=== PATIENT | female | born 1980 | race Caucasian/White ===

== ENCOUNTER 2019-07-30 23:59 | Emergency (ER) | payer MEDICAID ==
[~2019-07-30] VITALS: Ht 172.7 cm; Wt 99.1 kg
[~2019-07-30 23:59] MED LIST: ACETAZOLAMIDE125 MG PO; ADVAIR 250-501 EACH; AUGMENTIN 875-1 EACH PO; BACTRIM DS TAB1 EACH PO; BENADRYL25 MG; BUTALB-APAP-CA1 EACH PO; CIPRO250 M1 PO; DOXYCYCLINE 10100 MG PO; IMITREX100 MG PO; METROGEL-VAGINA70 GM VG; ONDANSETRON HCL4 M2; ONDANSETRON HCL4 M2 PO; PHENERGAN 25 MG25 M1 PO; PHENTERMINE H37.5 M1 PO; PROAIR HFA8.5 GM; PROMETHAZINE12.5 M4 RE; RANITIDINE HCL150 M1 PO; RIFAMPIN 300 M300 MG PO; SINGULAIR 10 MG10 M1; TOPAMAX 100 MG100 MG PO; ULTRAM 50MG TAB50 MG PO; ZANTAC 150MG T150 M1 PO
[2019-07-31 01:56] VITALS: BP 126/68
== END 2019-07-31 01:56 | disposition home or self-care (01) ==
LOC: M.ERS 23:59
DX: G43.909 Migraine, unspecified, not intractable, without status migrainosus (principal); N80.9 Endometriosis, unspecified; M79.7 Fibromyalgia; E11.9 Type 2 diabetes mellitus without complications; J45.909 Unspecified asthma, uncomplicated; F17.210 Nicotine dependence, cigarettes, uncomplicated; Z88.6 Allergy status to analgesic agent; Z91.040 Latex allergy status; Z88.5 Allergy status to narcotic agent

== ENCOUNTER 2019-08-28 13:38 | Emergency (ER) | payer MEDICAID ==
[~2019-08-28] VITALS: Ht 170.2 cm; Wt 90.7 kg
[2019-08-28] MEDS ORDERED: TIMOLOL MALEATE5 M2 OPHTHALMIC (13:55)
[2019-08-28] MEDS ORDERED: TRAMADOL 50 MG50 MG PO (16:49)
[2019-08-28 17:12] VITALS: BP 124/85
== END 2019-08-28 17:14 | disposition home or self-care (01) ==
LOC: M.ERS 13:38
DX: S93.491A Sprain of other ligament of right ankle, initial encounter (principal); N80.9 Endometriosis, unspecified; J45.909 Unspecified asthma, uncomplicated; E11.9 Type 2 diabetes mellitus without complications; M79.7 Fibromyalgia; G43.909 Migraine, unspecified, not intractable, without status migrainosus; F17.210 Nicotine dependence, cigarettes, uncomplicated; Z88.6 Allergy status to analgesic agent; Z88.5 Allergy status to narcotic agent; Z91.040 Latex allergy status; W18.39XA Other fall on same level, initial encounter; Y93.89 Activity, other specified; Y92.89 Other specified places as the place of occurrence of the external cause; Y99.8 Other external cause status

== ENCOUNTER 2019-11-19 07:57 | Emergency (ER) | payer MEDICAID ==
[~2019-11-19] VITALS: Ht 170.2 cm; Wt 90.7 kg
[~2019-11-19 07:57] MED LIST changes: +TIMOLOL MALEATE5 M2 OPHTHALMIC; +TRAMADOL 50 MG50 MG PO
[2019-11-19] MEDS ORDERED: PROAIR HFA8.5 GM INH (08:18)
[2019-11-19 08:54] LABS: INFLUENZA A ANTIGEN Positive (Negative); INFLUENZA B ANTIGEN Negative (Negative)
[2019-11-19] MEDS ORDERED: TAMIFLU75 MG PO (10:16)
[2019-11-19] MEDS ORDERED: AZITHROMYCIN 2250 MG PO (10:16)
[2019-11-19 10:31] VITALS: BP 151/86
== END 2019-11-19 10:32 | disposition home or self-care (01) ==
LOC: M.ERS 07:57
PROVIDERS: Emergency Medicine
DX: J11.1 Influenza due to unidentified influenza virus with other respiratory manifestations (principal); J40 Bronchitis, not specified as acute or chronic; R11.2 Nausea with vomiting, unspecified; R07.9 Chest pain, unspecified; F17.210 Nicotine dependence, cigarettes, uncomplicated; G43.909 Migraine, unspecified, not intractable, without status migrainosus; E11.9 Type 2 diabetes mellitus without complications; M79.7 Fibromyalgia; Z88.6 Allergy status to analgesic agent; Z88.5 Allergy status to narcotic agent; Z91.040 Latex allergy status

== ENCOUNTER 2021-06-19 10:40 | Emergency (ER) | payer MEDICAID ==
[~2021-06-19] VITALS: Ht 172.7 cm; Wt 90.7 kg
[~2021-06-19 10:40] MED LIST changes: +AZITHROMYCIN 2250 MG PO; +PROAIR HFA8.5 GM INH; +TAMIFLU75 MG PO
[2021-06-19 12:45] LABS: ABSOLUTE BASOPHILS 0.1 thou/uL (0.0-0.2); ABSOLUTE EOSINOPHILS 0.1 thou/uL (0.0-0.7); ABSOLUTE LYMPHOCYTES 3.1 thou/uL (0.8-5.3); ABSOLUTE MONOCYTES 0.5 thou/uL (0.0-1.2); ABSOLUTE NEUTROPHILS 5.9 thou/uL (1.6-8.1); BASOPHILS 0.7 %; EOSINOPHILS 0.6 %; HEMOGLOBIN 15.1 gm/dL (12.0-15.0); LYMPHOCYTES 32.7 %; MCH 32.6 pg (26.0-34.0); MCHC 35.1 g/dL (28.0-37.0); MCV 93.1 fL (80.0-100.0); MPV 8.3 fl. (7.2-11.1); NUCLEATED RBCS 0 /100WBC; PLATELET COUNT* 252 thou/uL (150-400); RBC 4.62 mil/uL (4.20-5.00); RDW-CV 13.5 % (10.5-14.5); WBC 9.6 thou/uL (4.0-11.0)
[2021-06-19 12:49] LABS: CALCIUM 8.9 mg/dL (8.5-10.1); CREATININE 0.9 mg/dL (0.6-1.3); POTASSIUM 3.9 mmol/L (3.5-5.1)
[2021-06-19 12:54] LABS: ALBUMIN 4.2 g/dL (3.4-5.0); TOTAL BILIRUBIN 0.6 mg/dL (<0.1-1.0); TOTAL PROTEIN 7.5 g/dL (6.4-8.2)
[2021-06-19] MEDS ORDERED: BUTALB-APAP-CA1 EACH PO (15:01)
[2021-06-19] MEDS ORDERED: CEPHALEXIN500 MG PO (15:01)
[2021-06-19] MEDS ORDERED: BACTRIM DS TAB1 EACH PO (15:01)
[2021-06-19] MEDS ORDERED: ULTRAM50 MG PO (15:29)
[2021-06-19 16:23] VITALS: BP 154/72
== END 2021-06-19 16:23 | disposition home or self-care (01) ==
LOC: M.ERS 10:40
PROVIDERS: Nurse Practitioner Family
DX: L03.211 Cellulitis of face (principal); G43.909 Migraine, unspecified, not intractable, without status migrainosus; J34.1 Cyst and mucocele of nose and nasal sinus; J45.909 Unspecified asthma, uncomplicated; E11.9 Type 2 diabetes mellitus without complications; M79.7 Fibromyalgia; F17.210 Nicotine dependence, cigarettes, uncomplicated; Z79.51 Long term (current) use of inhaled steroids; Z98.890 Other specified postprocedural states; Z88.5 Allergy status to narcotic agent; Z88.8 Allergy status to other drugs, medicaments and biological substances; Z88.6 Allergy status to analgesic agent; Z91.040 Latex allergy status

== ENCOUNTER 2021-07-06 08:08 | Emergency (ER) | payer MEDICAID ==
[~2021-07-06] VITALS: Ht 172.7 cm; Wt 90.7 kg
[~2021-07-06 08:08] MED LIST changes: +CEPHALEXIN500 MG PO; +ULTRAM50 MG PO
[2021-07-06] MEDS ORDERED: OTHER (08:23)
[2021-07-06 09:28] LABS: ABSOLUTE BASOPHILS 0.1 thou/uL (0.0-0.2); ABSOLUTE EOSINOPHILS 0.1 thou/uL (0.0-0.7); ABSOLUTE LYMPHOCYTES 2.9 thou/uL (0.8-5.3); ABSOLUTE MONOCYTES 0.8 thou/uL (0.0-1.2); ABSOLUTE NEUTROPHILS 9.1 thou/uL (1.6-8.1); EOSINOPHILS 0.6 %; HEMATOCRIT 43.5 % (37.0-47.0); HEMOGLOBIN 15.3 gm/dL (12.0-15.0); LYMPHOCYTES 22.3 %; MCH 32.5 pg (26.0-34.0); MCHC 35.1 g/dL (28.0-37.0); MCV 92.5 fL (80.0-100.0); MONOCYTES 6.3 %; MPV 8.2 fl. (7.2-11.1); NUCLEATED RBCS 0 /100WBC; PLATELET COUNT* 250 thou/uL (150-400); POLYS 69.8 %; RDW-CV 13.1 % (10.5-14.5); WBC 13.1 thou/uL (4.0-11.0)
[2021-07-06 09:35] LABS: CALCIUM 8.8 mg/dL (8.5-10.1); CREATININE 0.8 mg/dL (0.6-1.3); POTASSIUM 3.8 mmol/L (3.5-5.1)
[2021-07-06] MEDS ORDERED: CLEOCIN HCL300 MG PO (11:22)
[2021-07-06] MEDS ORDERED: HYDROCODON-ACE1 EA11 PO (11:44)
[2021-07-06 12:13] VITALS: BP 136/82
== END 2021-07-06 12:14 | disposition home or self-care (01) ==
LOC: M.ERS 08:08
PROVIDERS: Emergency Medicine
DX: L03.211 Cellulitis of face (principal); K04.7 Periapical abscess without sinus; J45.909 Unspecified asthma, uncomplicated; E28.2 Polycystic ovarian syndrome; E11.9 Type 2 diabetes mellitus without complications; G43.909 Migraine, unspecified, not intractable, without status migrainosus; F17.210 Nicotine dependence, cigarettes, uncomplicated; Z88.6 Allergy status to analgesic agent; Z88.5 Allergy status to narcotic agent; Z91.040 Latex allergy status

== ENCOUNTER 2021-08-28 20:42 | Emergency (ER) | payer OTHER, MEDICAID ==
[~2021-08-28] VITALS: Ht 172.7 cm; Wt 90.7 kg
[~2021-08-28 20:42] MED LIST changes: +CLEOCIN HCL300 MG PO; +HYDROCODON-ACE1 EA11 PO; +OTHER
[2021-08-28] MEDS ORDERED: ZOFRAN ODT4 MG PO (22:23)
[2021-08-28] MEDS ORDERED: FLEXERIL PO (22:23)
[2021-08-28 22:36] VITALS: BP 155/94
== END 2021-08-28 22:36 | disposition home or self-care (01) ==
LOC: M.ERS 20:42
DX: S06.0X0A Concussion without loss of consciousness, initial encounter (principal); J45.909 Unspecified asthma, uncomplicated; E11.9 Type 2 diabetes mellitus without complications; G43.909 Migraine, unspecified, not intractable, without status migrainosus; F17.210 Nicotine dependence, cigarettes, uncomplicated; Z88.6 Allergy status to analgesic agent; Z88.5 Allergy status to narcotic agent; Z91.040 Latex allergy status; Z91.02 Food additives allergy status; V89.2XXA Person injured in unspecified motor-vehicle accident, traffic, initial encounter; Y93.89 Activity, other specified; Y92.89 Other specified places as the place of occurrence of the external cause; Y99.8 Other external cause status

== ENCOUNTER → 2021-09-04 | Outpatient (CLI) | payer OTHER, MEDICAID ==
[~2021-09-04] MED LIST changes: +FLEXERIL PO; +ZOFRAN ODT4 MG PO
== END ==
LOC: M.RAD 12:50
PROVIDERS: ATTEND Family Medicine
DX: M25.561 Pain in right knee (principal)

== ENCOUNTER → 2021-09-06 | Outpatient (CLI) | payer MEDICAID | LOC: M.ULTRA 15:30 | PROVIDERS: ATTEND Orthopaedic Surgery | DX: M25.561 Pain in right knee (principal) ==

== ENCOUNTER 2021-10-26 22:00 | Emergency (ER) | payer MEDICAID ==
[~2021-10-26] VITALS: Ht 170.2 cm; Wt 136.1 kg
[2021-10-26 22:34] LABS: URINE BILIRUBIN NEGATIVE (Negative); URINE BLOOD TRACE (Negative); URINE CLARITY CLEAR; URINE COLOR YELLOW; URINE GLUCOSE-RANDOM NEGATIVE (Negative); URINE KETONES NEGATIVE (Negative); URINE LEUKOCYTES-REFLEX NEGATIVE (Negative); URINE NITRITE-REFLEX NEGATIVE (Negative); URINE PROTEIN NEGATIVE (Negative); URINE UROBILINOGEN 0.2 E.U./dl (0.2-1.0)
[2021-10-26 22:43] LABS: AMP/METHAMP Negative (Negative); BARBITURATES Negative (Negative); BENZODIAZEPINES Negative (Negative); COCAINE Negative (Negative); METHADONE Negative (Negative); OPIATES Negative (Negative); PCP Negative (Negative); THC POSITIVE (Negative)
[2021-10-26 22:48] LABS: ABSOLUTE BASOPHILS 0.1 thou/uL (0.0-0.2); ABSOLUTE EOSINOPHILS 0.1 thou/uL (0.0-0.7); ABSOLUTE LYMPHOCYTES 3.7 thou/uL (0.8-5.3); ABSOLUTE MONOCYTES 0.7 thou/uL (0.0-1.2); ABSOLUTE NEUTROPHILS 3.9 thou/uL (1.6-8.1); BASOPHILS 1.3 %; EOSINOPHILS 1.5 %; HEMOGLOBIN 15.3 gm/dL (12.0-15.0); LYMPHOCYTES 43.5 %; MCH 32.9 pg (26.0-34.0); MCHC 34.8 g/dL (28.0-37.0); MCV 94.7 fL (80.0-100.0); MONOCYTES 7.9 %; MPV 8.4 fl. (7.2-11.1); NUCLEATED RBCS 0 /100WBC; PLATELET COUNT* 235 thou/uL (150-400); POLYS 45.8 %; RBC 4.64 mil/uL (4.20-5.00); WBC 8.5 thou/uL (4.0-11.0)
[2021-10-26 22:57] LABS: CALCIUM 8.4 mg/dL (8.5-10.1); CREATININE 0.9 mg/dL (0.6-1.3); POTASSIUM 3.8 mmol/L (3.5-5.1)
[2021-10-26 23:01] LABS: ALBUMIN 3.7 g/dL (3.4-5.0); TOTAL BILIRUBIN 0.3 mg/dL (<0.1-1.0); TOTAL PROTEIN 7.2 g/dL (6.4-8.2)
[2021-10-26] MEDS ORDERED: COMPAZINE10 MG PO (23:38)
[2021-10-26] MEDS ORDERED: EMGALITY120 MG/1 M SUBQ (23:39)
[2021-10-26] MEDS ORDERED: BENADRYL25 MG PO (23:39)
[2021-10-26] MEDS ORDERED: HYDROCHLOROTHIA25 M1 PO (23:40)
[2021-10-26] MEDS ORDERED: ZUPLENZ4 MG PO (23:41)
[2021-10-26] MEDS ORDERED: FLEXERIL PO (23:41)
[2021-10-26] MEDS ORDERED: VITAMIN D21250 MCG PO (23:42)
[2021-10-26] MEDS ORDERED: MYRBETRIQ25 MG PO (23:43)
[2021-10-26] MEDS ORDERED: VESICARE10 M1 PO (23:43)
[2021-10-26] MEDS ORDERED: HYDROCODON-ACE1 EAC8 PO (23:56)
[2021-10-27 02:29] VITALS: BP 152/85
== END 2021-10-27 02:31 | disposition home or self-care (01) ==
LOC: M.ERS 22:00
PROVIDERS: Emergency Medicine
DX: R07.89 Other chest pain (principal); Z20.822 Contact with and (suspected) exposure to COVID-19; R05.9 Cough, unspecified; J45.909 Unspecified asthma, uncomplicated; E11.9 Type 2 diabetes mellitus without complications; M79.7 Fibromyalgia; G43.909 Migraine, unspecified, not intractable, without status migrainosus; F17.210 Nicotine dependence, cigarettes, uncomplicated; Z87.42 Personal history of other diseases of the female genital tract; Z79.899 Other long term (current) drug therapy; Z88.6 Allergy status to analgesic agent; Z88.5 Allergy status to narcotic agent; Z88.8 Allergy status to other drugs, medicaments and biological substances; Z91.040 Latex allergy status; Z91.013 Allergy to seafood; Z91.018 Allergy to other foods

== ENCOUNTER 2021-11-08 10:34 | Emergency (ER) | payer MEDICAID ==
[~2021-11-08] VITALS: Ht 172.7 cm; Wt 90.7 kg
[~2021-11-08 10:34] MED LIST changes: +BENADRYL25 MG PO; +COMPAZINE10 MG PO; +EMGALITY120 MG/1 M SUBQ; +HYDROCHLOROTHIA25 M1 PO; +HYDROCODON-ACE1 EAC8 PO; +MYRBETRIQ25 MG PO; +VESICARE10 M1 PO; +VITAMIN D21250 MCG PO; +ZUPLENZ4 MG PO
[2021-11-08 11:52] LABS: HEMATOCRIT 48.1 % (37.0-47.0); HEMOGLOBIN 16.4 gm/dL (12.0-15.0); MCH 32.6 pg (26.0-34.0); MCHC 34.2 g/dL (28.0-37.0); MCV 95.5 fL (80.0-100.0); MPV 8.3 fl. (7.2-11.1); RBC 5.03 mil/uL (4.20-5.00); RDW-CV 14.5 % (10.5-14.5); WBC 11.6 thou/uL (4.0-11.0)
[2021-11-08 12:06] LABS: CALCIUM 8.5 mg/dL (8.5-10.1); CREATININE 0.9 mg/dL (0.6-1.3); POTASSIUM 3.7 mmol/L (3.5-5.1)
[2021-11-08 12:10] LABS: ALBUMIN 4.4 g/dL (3.4-5.0); TOTAL BILIRUBIN 0.3 mg/dL (<0.1-1.0); TOTAL PROTEIN 7.8 g/dL (6.4-8.2)
[2021-11-08] MEDS ORDERED: HYDROCODON-ACE1 EAC7 PO (15:25)
[2021-11-08] MEDS ORDERED: ZOFRAN ODT4 MG DISSOLVE (15:25)
[2021-11-08] MEDS ORDERED: CEPHALEXIN500 MG PO (15:25)
[2021-11-08 15:40] VITALS: BP 110/59
--- NOTE | 2021-11-09 12:45 | EKG ---
[place] [address] ELECTROCARDIOGRAM REPORT Name: PEDRO MOONEY Room: [facility]#: [id number] Admission: 11/08/21 Attend Phys: Discharge: 11/08/21 Date of : 82 Date of Service: 11/08/21 1139 Report #: [id number] THIS REPORT FOR: //name// [facility] ED Test Date: 2021-11-08 Test Time: 11:39:11 Pat Name: PEDRO MOONEY Department: Room: Gender: F Retail Customer Service Representative: : 1980 Requested By: Lui Bates Order Number: [id number] MD: Rikki Rich Measurements Intervals [place] Rate: 94 P: 37 W[place]: 126 QRS: -14 QRSD: 91 T: 37 QT: 365 QTc: 457 Interpretive Statements Sinus rhythm RSR' in V1 or V2, right VCD Minimal ST elevation, anterior leads No previous ECG available for comparison Electronically Signed On 11-09-2021 12:45:33 [employer] by Rikki Rich [email or web address] <ELECTRONICALLY SIGNED> By: Rikki Rich MD, [facility] 11/09/21 1245 1139 1139 Rikki Rich MD, [facility] /EPI
== END 2021-11-08 15:40 | disposition home or self-care (01) ==
LOC: M.ERS 10:34
PROVIDERS: Emergency Medicine Emergency Medical Services
DX: S02.2XXA Fracture of nasal bones, initial encounter for closed fracture (principal); S60.512A Abrasion of left hand, initial encounter; S60.511A Abrasion of right hand, initial encounter; S80.212A Abrasion, left knee, initial encounter; S80.211A Abrasion, right knee, initial encounter; M54.2 Cervicalgia; J45.909 Unspecified asthma, uncomplicated; K21.9 Gastro-esophageal reflux disease without esophagitis; Z87.442 Personal history of urinary calculi; E11.9 Type 2 diabetes mellitus without complications; M79.7 Fibromyalgia; F17.210 Nicotine dependence, cigarettes, uncomplicated; G43.909 Migraine, unspecified, not intractable, without status migrainosus; Z79.899 Other long term (current) drug therapy; Z88.8 Allergy status to other drugs, medicaments and biological substances; Z88.6 Allergy status to analgesic agent; Z91.018 Allergy to other foods; Z88.5 Allergy status to narcotic agent; Z91.040 Latex allergy status; Z91.013 Allergy to seafood; W17.89XA Other fall from one level to another, initial encounter; Y93.89 Activity, other specified; Y92.89 Other specified places as the place of occurrence of the external cause; Y99.8 Other external cause status